=== PATIENT | male | born 1970 | race Caucasian/White ===

== ENCOUNTER 2024-04-02 15:54 | Emergency (ER) | payer MEDICAID ==
[~2024-04-02] VITALS: Ht 162.6 cm; Wt 66.0 kg
[2024-04-02 15:56] VITALS: TEMP 98.3
[2024-04-02 17:10] VITALS: BP 119/79; PULSE 61; RESP 16
[2024-04-02] MEDS: PERTUSS(ACELL),DIPH,TET/PF 0.5 ML SYRINGE [ADULT] IM. ONE (17:28)
[2024-04-02] MEDS: BACITRACIN 0.9 GM PACKET OINTMENT TP ONE (17:28)
== END 2024-04-02 17:39 | disposition home or self-care (01) ==
LOC: EMS 15:54
DX: S61.411A Laceration without foreign body of right hand, initial encounter (principal); W26.8XXA Contact with other sharp object(s), not elsewhere classified, initial encounter; Y93.89 Activity, other specified; Y92.89 Other specified places as the place of occurrence of the external cause; Y99.8 Other external cause status
CPT/HCPCS: 90471; 90715; 99283